=== PATIENT | female | born 1995 | race Caucasian/White ===

== ENCOUNTER 2018-01-31 10:26 | Emergency (ER) | END 2018-01-31 14:22 | disposition home or self-care (01) ==

== ENCOUNTER 2018-04-08 20:25 | Emergency (ER) | END 2018-04-08 23:11 | disposition home or self-care (01) ==

== ENCOUNTER 2018-09-25 17:10 | Emergency (ER) | payer SELFPAY ==
[~2018-09-25] VITALS: Wt 72.0 kg
[~2018-09-25 17:10] MED LIST: LAMO250T PO; LEVE750T70 PO
[2018-09-25 17:26] VITALS: BP 154/89; PULSE 102; RESP 20
== END 2018-09-25 21:00 | disposition left against medical advice (07) ==
LOC: FTE 17:10
DX: Z53.21 Procedure and treatment not carried out due to patient leaving prior to being seen by health care provider (principal)